=== PATIENT | female | born 2000 | race Two or more races ===

== ENCOUNTER 2024-12-29 01:46 | Emergency (ER) | payer MEDICAID, OTHER ==
[~2024-12-29] VITALS: Ht 177.8 cm; Wt 115.1 kg
--- NOTE | 2024-12-29 01:51 | ED.PDOC ---
Eye-HPI HPI Comments PATIENT REPORTS UPPER RIGHT TOOTH PAIN 04/25 X2 DAYS WITH RIGHT SIDED FACE NUMBN ESS AND RIGHT EYE BLURRED VISION. DENIES DIFFICULTY BREATHING, SHORTNESS OF BREATH, CHEST PAIN DIFFICULTY SWALLOWING OR THROAT SWELLING. Time Seen by MD: 01:49 Reviewed Notes: Nurses Notes, Medications, Allergies Allergies: Coded Allergies: NO KNOWN ALLERGIES (Unverified , 12/29/24) Home Meds Active Scripts Ibuprofen (Ibuprofen) 800 Mg Tab, 800 MG PO Q8HP PRN for 5 Days, #15 TAB Prov:KAMIBRITTNEY Adams CLAIMS ANALYST 12/29/24 Amoxicillin & Pot Clavulanate (AUGMENTIN TABLET) 875 Mg Tb, 875 MG PO BID for 7 Days, #14 TAB Prov:BRITTNEY MCCLURE CLAIMS ANALYST 12/29/24 Information Source: Patient Past Medical History PAST MEDICAL HISTORY: Denies Surgical History: Denies all surgeries [employer] History: No Pertinent [employer] History Family History Family History: Unknown Social History Smoker: Non-Smoker Alcohol: Denies ETOH Use Drugs: Denies Drug Use Constitutional: denies: chills, diaphoresis, fatigue, fever, malaise, sweats, weakness, others EENTM: reports: others (RIGHT-SIDED DENTAL PAIN); denies: blurred vision, double vision, ear bleeding, ear discharge, ear drainage, ear pain, ear ringing, eye pain, eye redness, hearing loss, mouth pain, mouth swelling, nasal disch arge, nose bleeding, nose congestion, nose pain, photophobia, tearing, throat pain, throat swelling, voice changes Respiratory: denies: cough, hemoptysis, orthopnea, SOB at rest, shortness of breath, SOB with excertion, stridor, wheezing, others Cardiovascular: denies: chest pain, dizzy spells, diaphoresis, Dyspnea on exertion, edema, irregular heart beat, left arm pain, lightheadedness, palpitations, PND, syncope, others Gastrointestinal: denies: abdomen distended, abdominal pain, blood streaked bowels, constipated, diarrhea, dysphagia, difficulty swallowing, hematemesis, melena, nausea, poor appetite, poor fluid intake, rectal bleeding, rectal pain, vomiting, others Genitourinary: denies: abnormal vagina bleeding, burning, dyspareunia, dysuria, flank pain, frequency, hematuria, incontinence, pain, , vagina discharge, urgency, others Neurological: denies: dizziness, fainting, headache, left sided numbness, left sided weakness, numbness, paresthesia, pre-existing deficit, right sided numbness, right sided weakness, seizure, speech problems, tingling, tremors, weakness, others Musculoskeletal: denies: back pain, gout, joint pain, joint swelling, muscle pain, muscle stiffness, neck pain, others Integumetry: denies: bruises, change in color, change in hair/nails, dryness, laceration, lesions, lumps, rash, wounds, others Allergic/Immunocompromised: denies: Difficulty Healing, Frequent Infections, Hives, Itching, others Hematologic/Lymphatic: denies: anemia, blood clots, easy bleeding, easy bruising, swollen glands, others Endocrine: denies: excessive hunger, excessive sweating, excessive thirst, excessive urination, flushing, intolerance to cold, intolerance to heat, unexplained weight gain, unexplained weight loss, others Psychiatric: denies: anxiety, bipolar disorder, depression, hopeless, panic disorder, schizophrenia, sleepless, suicidal, others Physical Exam General Appearance: No Apparent Distress, Normal HEENT: Normal ENT Inspection, Pharynx Normal, TMs Normal, Other (RIGHT UPPER JAW NUMBER MOLAR 16 NOTED MODERATE DECAY FACIAL SWELLING) Neck: Full Range of Motion, Non-Tender Respiratory: Lungs Clear, No Respiratory Distress, Normal Breath Sounds Cardiovascular: No Edema, No JVD, No Murmur, No Gallop, Normal Peripheral Pulses, Regular Rate/Rhythm Breast Exam: Deferred Gastrointestinal: Non Tender, Soft Genitalia: Deferred Pelvic: Deferred Rectal: Deferred Extremities: Normal range of motion Musculoskeletal : Apperance: Normal Neurologic: Alert, lean specialist II-XII nml as Tested, No Motor Deficits, Normal Affect, Normal Mood, No Sensory Deficits Cerebellar Function: Normal Reflexes: Normal Skin: Dry, Normal Color, Warm Lymphatic: No Adenopathy Was a procedure done? Was a procedure done?: No EENT DIFF Eye: N/A Sore Throat: Anthony's Angina X-Ray, Labs, Meds, VS Vital Signs Date Time Temp Pulse Resp B/P (MAP) Pulse Ox O2 Delivery O2 Flow Rate FiO2 12/29/24 02:20 Room Air 12/29/24 02:20 98.9 76 14 146/90 (108) 98 98.9 12/29/24 02:20 98.9 76 14 146/90 (108) 98 98.9 Current Medications Medications (Trade) Dose Ordered Sig/Diana Route Start Time Stop Time Status Last Admin Acetaminophen/ Hydrocodone Bitart ([place] 5/325MG Tab) 1 tab ONCE ONCE PO 12/29/24 02:45 12/29/24 02:46 DC 12/29/24 02:50 Ketorolac Tromethamine (Toradol Injection) 60 mg ONCE ONCE IM 12/29/24 02:45 12/29/24 02:46 DC 12/29/24 02:51 Benzocaine (Hurricaine [place]) 1 spr ONCE ONCE MT 12/29/24 02:45 12/29/24 02:46 DC 12/29/24 02:59 X-Ray, Labs, Meds, VS Comment KETOROLAC 60 MG IM, NORCO 5 MG P.O. AND HURRICAINE SPRAY SHE NOTES IMPROVEMENT IN PAIN 1/10 ON PAIN SCALE REQUESTING DISCHARGE AT THIS TIME. WE WILL SCRIPT AUGMENTIN TWICE DAILY X7 DAYS. ADVISED TAKE MEDICATIONS PRESCRIBED SIDE EFFECTS DISCUSSED. ADVISED TO CALL IN THE MORNING MAKE AN APPOINTMENT WITH DENTAL FOR RESOLUTION. ER RETURN PRECAUTIONS GIVEN PATIENT INDICATES UNDERSTANDING AGREES WITH DISCHARGE PLAN OF CARE. Time of 1ST Reevaluation: 01:50 Reevaluation 1ST: Unchanged Patient Education/Counseling: Diagnosis, Treatment, Prognosis, Need For Follow Up Family Education/Counseling: Diagnosis, Treatment, Prognosis, Need For Follow Up Departure 1 Departure Time of Disposition: 03:07 Impression: Primary Impression: Infected dental caries Disposition: HOME / SELF CARE / HOMELESS Condition: Stable e-Prescriptions Ibuprofen (Ibuprofen) 800 Mg Tab 800 MG PO Q8HP PRN for 5 Days, #15 TAB Prov: BRITTNEY MCCLURE 12/29/24 Amoxicillin & Pot Clavulanate (AUGMENTIN TABLET) 875 Mg Tb 875 MG PO BID for 7 Days, #14 TAB Prov: BRITTNEY MCCLURE 12/29/24 Discharged With: Self Critical Care Note Critical Care Time?: No Stability Stability form required: BRITTNEY Castrejon Dec 29, 2024 01:50
[2024-12-29 02:20] VITALS: BP 146/90; PULSE 76; RESP 14; TEMP 98.9; O2SAT 98
[2024-12-29] MEDS ORDERED: AUG875T PO (02:43)
[2024-12-29] MEDS ORDERED: IBUP-1456 PO (02:43)
[2024-12-29] MEDS: HYDROcodone-ACET 5/325MG TAB PO ONE (02:50)
[2024-12-29] MEDS: KETOROLAC TROMETH 60MG/2ML VIAL IM ONE (02:51)
[2024-12-29] MEDS: BENZOCAINE (DENTAL) 20 % SPRAY 60ML MT ONE (02:59)
== END 2024-12-29 03:08 | disposition home or self-care (01) ==
LOC: ER 01:54
DX: K04.7 Periapical abscess without sinus (principal); Z79.899 Other long term (current) drug therapy
CPT/HCPCS: 96372; 99283; J1885